=== PATIENT | male | born 1995 | race Caucasian/White ===

== ENCOUNTER 2019-01-23 23:03 | Emergency (ER) | payer OTHER ==
[~2019-01-23] VITALS: Ht 177.8 cm; Wt 63.5 kg
[2019-01-23 23:09] VITALS: BP 136/65; Ht 177.8 cm; Wt 63.5 kg
== END 2019-01-24 00:04 | disposition home or self-care (01) ==
LOC: ED 23:03
DX: M25.571 Pain in right ankle and joints of right foot (principal)
CPT/HCPCS: Q0092